=== PATIENT | female | born 1965 | race Caucasian/White ===

== ENCOUNTER 2024-02-28 08:36 | Outpatient (OUT) | payer BC, SELFPAY ==
--- NOTE | 2024-02-28 08:49 | US_ITS ---
[address] [address] Patient Name: TERRY LÓPEZ MRN: [id number] date: 1965 Sex: F Assigned Patient Location: Current Patient Location: Accession/Order Number: [id number] Exam Date: 02/28/2024 08:51 Report Date: 02/28/2024 09:20 At the request of: GIL RIVERA Procedure: US renal BI EXAMINATION: US renal BI HISTORY: Kidney Stone N20.0 COMPARISON: No relevant comparison available. TECHNIQUE: Ultrasound examination was performed of the bladder. FINDINGS: Right Kidney: Normal in size, contour and echotexture. The cortex measures 1.1 cm. No hydronephrosis or solid cortical mass Height: 5.7 cm Length: 10.2 cm Width: 5.8 cm Left Kidney: Normal in size, contour and echotexture. The cortex measures 1.1 cm. No hydronephrosis or solid cortical mass. 2 echogenic foci in the lower pole measuring up to 5 mm, nonobstructing nephrolithiasis Height: 6.0 cm Length: 11.2 cm Width: 5.6 cm Urinary bladder is normal in appearance. Volume of 158 mL US/US renal BI IMPRESSION: Left nephrolithiasis Electronically authenticated by: NATALIIA GUAMAN Date: 02/28/2024 09:20
== END 2024-02-28 08:37 | disposition home or self-care (01) ==
PROVIDERS: PCP Family Medicine; Visit Provider Urology
DX: N20.0 Calculus of kidney (principal)
CPT/HCPCS: 76775